=== PATIENT | female | born 1965 | race Caucasian/White ===

== ENCOUNTER 2017-08-07 17:34 | Emergency (ER) | payer MEDICAID ==
[~2017-08-07] VITALS: Ht 167.6 cm; Wt 74.4 kg
[2017-08-07 17:41] VITALS: Ht 167.6 cm; Wt 74.4 kg
[2017-08-07 20:41] VITALS: BP 122/84
== END 2017-08-07 20:41 | disposition home or self-care (01) ==
LOC: ED 17:34
DX: H81.02 Meniere's disease, left ear (principal); Z86.39 Personal history of other endocrine, nutritional and metabolic disease
CPT/HCPCS: 82962; J8597

== ENCOUNTER 2018-10-08 17:57 | Emergency (ER) | payer MEDICAID ==
[~2018-10-08] VITALS: Ht 167.6 cm; Wt 76.4 kg
[2018-10-08 18:20] VITALS: Ht 167.6 cm; Wt 76.4 kg
[2018-10-08 19:49] VITALS: BP 121/55
== END 2018-10-08 19:49 | disposition home or self-care (01) ==
LOC: ED 17:57
DX: R51 Headache (principal); J02.9 Acute pharyngitis, unspecified; M54.2 Cervicalgia; R42 Dizziness and giddiness; R09.89 Other specified symptoms and signs involving the circulatory and respiratory systems